=== PATIENT | female | born 1965 | race Caucasian/White ===

== ENCOUNTER 2017-09-16 18:54 | Emergency (ER) | payer BC, OTHER ==
[2017-09-16 20:54] LABS: URINE BLOOD (Dip) POC Trace-intact (NEGATIVE); URINE GLUCOSE (Dip) POC Negative (NEGATIVE); URINE KETONES (Dip) POC Trace (NEGATIVE); URINE LEUKOCYTE EST (Dip) POC Trace (NEGATIVE); URINE NITRITE (Dip) POC Negative (NEGATIVE); URINE TOTAL PROTEIN POC Negative (NEGATIVE)
[2017-09-16 20:54] LABS: URINE PH (Dip) POC 5.5 (5.0-8.5)
== END 2017-09-16 21:30 | disposition home or self-care (01) ==
LOC: FTE 18:54
DX: N30.01 Acute cystitis with hematuria (principal)
CPT/HCPCS: 81003; 99283

== ENCOUNTER 2018-04-06 17:03 | Emergency (ER) | payer BC ==
[2018-04-06 19:06] LABS: URINE BLOOD (Dip) POC Trace-intact (NEGATIVE); URINE GLUCOSE (Dip) POC Negative (NEGATIVE); URINE KETONES (Dip) POC Trace (NEGATIVE); URINE LEUKOCYTE EST (Dip) POC Trace (NEGATIVE); URINE NITRITE (Dip) POC Negative (NEGATIVE); URINE TOTAL PROTEIN POC Negative (NEGATIVE)
[2018-04-06 19:06] LABS: URINE PH (Dip) POC 6.5 (5.0-8.5)
== END 2018-04-06 19:35 | disposition home or self-care (01) ==
LOC: FTE 17:03
DX: N30.01 Acute cystitis with hematuria (principal)
CPT/HCPCS: 81003; 99283

== ENCOUNTER 2018-06-20 13:04 | Emergency (ER) | payer BC | END 2018-06-20 16:27 | disposition home or self-care (01) | LOC: FTE 13:04 | DX: K13.0 Diseases of lips (principal) | CPT/HCPCS: 99283 ==

== ENCOUNTER 2018-06-29 15:37 | Emergency (ER) | payer BC ==
[2018-06-29 17:58] LABS: URINE BLOOD (Dip) POC Trace-intact (NEGATIVE); URINE GLUCOSE (Dip) POC Negative (NEGATIVE); URINE KETONES (Dip) POC Negative (NEGATIVE); URINE LEUKOCYTE EST (Dip) POC Negative (NEGATIVE); URINE NITRITE (Dip) POC Negative (NEGATIVE); URINE TOTAL PROTEIN POC 1+ (NEGATIVE)
== END 2018-06-29 18:15 | disposition home or self-care (01) ==
LOC: FTE 15:37
DX: J03.90 Acute tonsillitis, unspecified (principal)
CPT/HCPCS: 81003; 99283

== ENCOUNTER 2018-07-07 18:11 | Emergency (ER) | payer BC | END 2018-07-07 21:48 | disposition home or self-care (01) | LOC: FTE 18:11 | DX: S62.605A Fracture of unspecified phalanx of left ring finger, initial encounter for closed fracture (principal); W06.XXXA Fall from bed, initial encounter; Y92.9 Unspecified place or not applicable | CPT/HCPCS: 29130; 73140; 99283-25 ==

== ENCOUNTER 2018-09-27 21:42 | Emergency (ER) | payer BC ==
[2018-09-27] MEDS: IBUPROFEN 200 MG TAB PO (22:52)
[2018-09-28 02:02] LABS: ADD MAN DIFF? NO
[2018-09-28 02:04] LABS: BASOPHILS % 0.3 % (0.0-2.0); EOSINOPHILS % 0.1 % (0.0-7.0); HEMATOCRIT 43.7 % (37.0-47.0); LYMPHOCYTES # 3.3 10^3/ul (0.8-2.9); LYMPHOCYTES % 23.4 % (15.0-51.0); MEAN CORPUSCULAR HGB CONC 34.3 g/dl (32.0-37.0); MEAN CORPUSCULAR VOLUME 90.3 fl (82.0-101.0); MEAN PLATELET VOLUME 9.5 fl (7.4-10.4); MONOCYTE # 0.7 10^3/ul (0.3-0.9); MONOCYTES % 4.8 % (0.0-11.0); NEUTROPHILS % 71.1 % (39.0-77.0); PLATELET COUNT 287 10^3/UL (140-415); RED BLOOD COUNT 4.84 10^6/ul (4.20-5.40); RED CELL DISTRIBUTION WIDTH 12.2 % (11.5-14.5)
[2018-09-28] MEDS: DIPHTH/TET/ACEL PERTUSS (ADULT) 0.5 ML VIAL IM* (02:15)
[2018-09-28 02:23] LABS: INR 0.93; PROTIME 12.6 Sec (11.9-14.9)
[2018-09-28 02:26] LABS: ANION GAP 10 (5-13); BLOOD UREA NITROGEN 18 mg/dl (7-20); CALCIUM 9.5 mg/dl (8.4-10.2); CARBON DIOXIDE 25 mmol/L (21-31); CHLORIDE 107 mmol/L (97-110); CREATININE 0.65 mg/dl (0.44-1.00); Estimated GFR > 60 mL/min (>60); GLUCOSE 129 mg/dl (70-220); SODIUM 142 mmol/L (135-144)
== END 2018-09-28 04:08 | disposition short-term general hospital (02) ==
LOC: FTE 21:42 → E/R 09-28 04:08
DX: S01.81XA Laceration without foreign body of other part of head, initial encounter (principal); W20.8XXA Other cause of strike by thrown, projected or falling object, initial encounter; Y92.9 Unspecified place or not applicable; Z23 Encounter for immunization
CPT/HCPCS: 12013; 70450; 70480; 80048; 85025; 85610; 85730; 90471; 90715; 99285-25